=== PATIENT | female | born 1955 | race African-American/Black ===

== ENCOUNTER 2016-11-21 06:52 | Day surgery (SDC) | payer OTHER ==
[2016-11-20 10:00] VITALS: BMI 23.8
--- NOTE | 2016-11-20 16:25 | HP ---
- Patient Scheduled date of Surgery: 11/21/16 Scheduled Surgical Procedure: Phacoemulsification and cataract extraction with PCIOL Affected Eye: Left Chief Complaint (Indication for surgery): Decreased vision affecting ADLs - Ocular History Other Eye History: Other (none) Eye Medications: vigamox Previous Eye Surgery: none - Medical History Illnesses: COPD (PE), Hypertension Current Medications: Ambulatory Orders Albuterol Sulfate Inhaler - [Ventolin Hfa Inhaler -] 1 - 2 inh PO QID 04/15/16 Budesonide/Formeterol Fumarate [SYMBICORT 80/4.5mcg -] 1 inh PO BID 04/15/16 Cholecalciferol (Vitamin D3) [Vitamin D] 500 unit PO DAILY 04/15/16 Gabapentin 300 mg PO DAILY 04/15/16 Hydrochlorothiazide [Hctz -] 12.5 mg PO DAILY 04/15/16 Omeprazole [Prilosec] 40 mg PO DAILY 04/15/16 Ranitidine HCl [Zantac] 150 mg PO DAILY 04/15/16 Sennosides/Docusate Sodium [Dok Plus Tablet] 1 each PO DAILY 04/15/16 Warfarin Sodium [Coumadin] 5 mg PO HS 04/15/16 Albuterol Sulfate Inhaler - [Ventolin Hfa Inhaler -] 1 - 2 inh PO PRN PRN Naproxen [Naprosyn -] 500 mg PO DAILY 11/20/16 Allergies/Adverse Reactions: Allergies Allergy/AdvReac Type Severity Reaction Status Date / Time aspirin Allergy "HIVES" Verified 11/20/16 10:01 Penicillins Allergy "HIVES" Verified 11/20/16 10:01 sulfamethoxazole Allergy "HIVES" Verified 11/20/16 10:01 [From Bactrim] trimethoprim [From Bactrim] Allergy "HIVES" Verified 11/20/16 10:01 iv contrast Allergy "HIVES" Uncoded 11/20/16 10:01 Ocular Examination - Best Corrected Visual Acuity Distance: Right eye: 20/25 Distance: Left eye: 20/40 - External/Slit Lamp Examination Abnormalities: none - Intraocular Pressure Intraocular Pressure - Right eye: 14 Intraocular Pressure-Left eye: 14 - Lens Lens: 1+ NS 2+ anterior subcapsular cataract, posterior cortical change - Vitreous/Retina Vitreous/Retina: c:d 0.2 m pigmenary changes, v /p wnl - Special Examination M - Right eye: +1.25-0.50 x 105 M - Left eye: +1.00- 0.75 x 75 K - Right eye: 45/45.25 x 160 K - Left eye: 44.75/45 x 177 AL - Right eye: 23.48 AL - Left eye: 23.45 IOL bag: +19.0d hoya 251 IOL sulcus: +18.0 d hoya 231 IOL AC: +15.5 d mta 4uo - Impression Impression: Cataract Left Eye - Plan Plan: Phacoemulsification and cataract extraction - IOL Left eye Post-hospital care will be provided in office on: 11/22/16
[~2016-11-21 06:52] MED LIST: TOBRAMYCIN/DEXAMETHASONE OPHTH. OINTMENT 1 TUBE TP ONE
[2016-11-21] MEDS ORDERED: ACETAMINOPHEN 325 MG TABLET (FP) PO PRN (07:24)
[2016-11-21] MEDS ORDERED: TROPICAMIDE 1% OPHTH SOLN 15 ML BOTTLE OP SCH (07:30)
[2016-11-21] MEDS ORDERED: CIPROFLOXACIN HCL 0.3% OPHTH 2.5ML BOTTLE OP SCH (07:30)
[2016-11-21] MEDS ORDERED: PHENYLEPHRINE 2.5% OPHTH SOLN 15 ML BOTTLE OP SCH (07:30)
[2016-11-21 07:45] LABS: INR 1.99 (0.82-1.09); PROTHROMBIN TIME (PATIENT) 22.2 SEC (9.98-11.88)
[2016-11-21 07:48] LABS: ACTIVATED PTT 35.7 SECONDS (26.9-34.4)
[2016-11-21 07:58] VITALS: TEMP 97.9
[2016-11-21] MEDS: TROPICAMIDE 1% OPHTH SOLN 15 ML BOTTLE ONE ×2 (08:00→08:05)
[2016-11-21] MEDS: PHENYLEPHRINE 2.5% OPHTH SOLN 15 ML BOTTLE ONE ×2 (08:00→08:05)
[2016-11-21] MEDS: DICLOFENAC SODIUM 0.1% OPHTHALMIC 2.5ML BOTTLE ONE ×2 (08:00→08:05)
[2016-11-21] MEDS: CIPROFLOXACIN 0.3% EYE DROPS 5 ML BOTTLE ONE ×2 (08:00→08:05)
[2016-11-21] MEDS ORDERED: MIDAZOLAM HCL 2 MG/2 ML SINGLE DOSE VIAL ONE (08:52)
[2016-11-21] MEDS ORDERED: LIDOCAINE HCL 2% JELLY (5 ML/TUBE) TP ONE (08:53)
[2016-11-21] MEDS ORDERED: LIDOCAINE HCL 1% PRESERVATIVE FREE - 30ML VIAL IO ONE (09:10)
[2016-11-21] MEDS ORDERED: TRYPAN BLUE 0.5 ML DISP.SYRIN IO ONE (09:14)
[2016-11-21] MEDS ORDERED: CHONDROITIN SU A/HYALUR SOD 1 KIT IO ONE (09:14)
[2016-11-21] MEDS ORDERED: BSS (NA/CA/MG/K) BALANCED SALT SOLUTION OPHTH SOLN 15 ML BOTTLE ONE (09:24)
[2016-11-21] MEDS ORDERED: TOBRAMYCIN/DEXAMETHASONE OPHTH. OINTMENT 1 TUBE ONE (09:24)
[2016-11-21] MEDS ORDERED: LIDOCAINE 1% P/F 10 MG/ML VIAL ONE (09:24)
[2016-11-21] MEDS ORDERED: EPINEPHrine/PF 1 MG/1 ML (1:1,000) AMPULE ONE (09:24)
[2016-11-21] MEDS ORDERED: TRYPAN BLUE 0.5 ML DISP.SYRIN ONE (09:24)
[2016-11-21] MEDS ORDERED: TOBRAMYCIN/DEXAMETHASONE OPHTH. OINTMENT 1 TUBE TP ONE (09:41)
--- NOTE | 2016-11-21 09:48 | HP ---
History & Physical Update - History History: No Change - Physical Physical: No Change - Assessment Assessment: No Change - Plan Plan: No Change
--- NOTE | 2016-11-21 09:48 | OP ---
Ophthalmology Operative Note Pre-Operative Diagnosis: Cataract Affected Eye: Left Operation: Phacoemulsification and cataract extraction with PCIOL Findings: cataract left eye Post-Operative Diagnosis: Same as Pre-op Supervisor Grower: Jerome Anesthesiologist: Bennett Whalen Anesthesia: Topical Specimens Removed: none Estimated blood loss: none Operative Report Dictated: No
--- NOTE | 2016-11-21 10:38 | OP ---
DATE OF OPERATION: 11/21/2016 PREOPERATIVE DIAGNOSIS: Cataract, left eye. POSTOPERATIVE DIAGNOSIS: Cataract, left eye. PROCEDURE: Phacoemulsification and cataract extraction with insertion of posterior chamber intraocular lens, left eye. SURGEON: Martha Valladares MD RAIL SIGNAL WORKER: None. ANESTHESIA: Topical. ANESTHESIOLOGIST: Bennett Whalen MD OPERATIVE PROCEDURE: The patient received viscous lidocaine gel in the holding area and then was brought to the operating room and gently sedated. The patient was then prepped and draped in the usual sterile fashion, so as to expose only the left eye. Ophthalmic Betadine was instilled into the inferior fornix, and the lashes were taped out of the surgical field. An eyelid speculum was placed into the left eye. A paracentesis was made in inferior clear cornea at the limbus. Nonpreserved lidocaine, 0.5 mL, 1% was injected into the anterior chamber and an air bubble was injected into the anterior chamber. Trypan blue was dripped on the anterior capsule, and viscoelastic material was instilled into the anterior chamber via the paracentesis to remove the trypan blue. A 2.4-mm keratome was then used to create the main incision in temporal clear cornea at the limbus. A continuous curvilinear capsulorrhexis was performed using a cystotome and Utrata forceps. Hydrodissection of the lens cortex was performed using BSS on a cannula until the nucleus was noted to be freely rotating. The phacoemulsification tip was inserted via the main wound and used to sculpt 2 perpendicular grooves into the lens nucleus. Viscoelastic was injected into the grooves, and the nucleus cracker was used to crack the lens into 4 quadrants. Each quadrant was lifted out of the capsule into the iris plane and individually phacoemulcified. The remaining cortical material was then aspirated using the irrigation and aspiration port. The capsular bag was inflated using Provisc and a preloaded Hoya lens, model 251, power +19.0 diopter was injected into the capsular bag and centered using a Sinskey hook. The residual viscoelastic material was removed from the anterior chamber using irrigation and aspiration. The wound edges were hydrated using BSS. The wound was tested for leakage. It was found to be watertight. Therefore, TobraDex ointment was placed in the eye, the speculum was removed from the eye, and the eyelid was closed. A sterile dressing and shield were placed over the eye, and the patient was transferred to the recovery room in stable condition, told to follow up in 1 day. MARTHA VALLADARES M.D. [id number]
[2016-11-21 12:31] VITALS: BP 112/56; PULSE 62
== END 2016-11-21 11:40 | disposition home or self-care (01) ==
LOC: JASU-SURG 06:52
PROVIDERS: ATTEND Ophthalmology
PROC: 08RK3JZ Replacement of Left Lens with Synthetic Substitute, Percutaneous Approach (ICD-10-PCS; principal; 2016-11-21 08:30)
DX: H26.9 Unspecified cataract (principal)
CPT/HCPCS: 36415; 85610; 85730

== ENCOUNTER 2017-02-23 20:15 | Inpatient (IN) | payer OTHER ==
--- NOTE | 2017-02-23 20:59 | PDOC ---
History of Present Illness - History of Present Illness Initial Comments: 02/23/17 21:43 The patient is a 61 year old female, with a significant past medical history of hypertension, pulmonary embolism (on anticoagulants), who presents to the emergency department with fever, cough, headache and sore throat since yesterday. She states she had a scratchy throat yesterday, exacerbated by coughing. She reports her cough is productive of green sputum. The patient states that shehad one episode of red-tinged sputum yesterday. She states she woke up with a subjective fever today and diffuse intermittent headache this evening. She states she has had decreased appetite since the onset of symptoms. Secondarily, she reports some mild pain to her left lower extremity. He denies chest pain, shortness of breath, and dizziness. He denies chills, nausea, vomit, diarrhea and constipation. He denies dysuria, frequency, urgency and hematuria. Allergies: aspirin, penicillins, sulfa drugs, trimethoprim, IV contrast Social history: Pt is retired and lives home alone PCP - Dr. Beena Hurtado <Ashley Cameron - Last Filed: 02/23/17 21:52> <Mague De Anda - Last Filed: 02/24/17 00:57> - General Chief Complaint: Respiratory Stated Complaint: COUGH,PAIN TO CHEST Time Seen by Provider: 02/23/17 20:25 Past History <Ashley Cameron - Last Filed: 02/23/17 21:52> - Past Medical History Asthma: Yes HTN: Yes - Psycho/Social/Smoking Cessation Hx Anxiety: No Suicidal Ideation: No Smoking History: Never smoked Have you smoked in the past 12 months: No Hx Alcohol Use: No Drug/Substance Use Hx: No Substance Use Type: None Hx Substance Use Treatment: No <Mague De Anda - Last Filed: 02/24/17 00:57> - Past Medical History Allergies/Adverse Reactions: Allergies Allergy/AdvReac Type Severity Reaction Status Date / Time aspirin Allergy "HIVES" Verified 02/23/17 20:21 Penicillins Allergy "HIVES" Verified 02/23/17 20:21 sulfamethoxazole Allergy "HIVES" Verified 02/23/17 20:21 [From Bactrim] trimethoprim [From Bactrim] Allergy "HIVES" Verified 02/23/17 20:21 iv contrast Allergy "HIVES" Uncoded 02/23/17 20:21 Home Medications: Ambulatory Orders Budesonide/Formeterol Fumarate [SYMBICORT 80/4.5mcg -] 1 inh PO BID 04/15/16 Cholecalciferol (Vitamin D3) [Vitamin D] 500 unit PO DAILY 04/15/16 Gabapentin 300 mg PO DAILY 04/15/16 Hydrochlorothiazide [Hctz -] 12.5 mg PO DAILY 04/15/16 Omeprazole [Prilosec] 40 mg PO DAILY 04/15/16 Ranitidine HCl [Zantac] 150 mg PO DAILY 04/15/16 Sennosides/Docusate Sodium [Dok Plus Tablet] 1 each PO DAILY 04/15/16 Warfarin Sodium [Coumadin] 5 mg PO HS 04/15/16 Albuterol Sulfate Inhaler - [Ventolin Hfa Inhaler -] 1 - 2 inh PO PRN PRN Naproxen [Naprosyn -] 500 mg PO DAILY 11/20/16 Acetaminophen [Tylenol -] 500 mg PO Q4H 11/21/16 Review of Systems - Review of Systems Able to Perform ROS?: Yes Comments:: 02/23/17 21:47 GENERAL/CONSTITUTIONAL: (+) subjective fevers. No chills. No weakness. HEAD, EYES, EARS, NOSE AND THROAT: (+) sore throat. No change in vision. No ear pain or discharge. CARDIOVASCULAR: No chest pain or shortness of breath. RESPIRATORY: (+) productive cough, no wheezing GASTROINTESTINAL: No nausea, vomiting, diarrhea or constipation. GENITOURINARY: No dysuria, frequency, or change in urination. MUSCULOSKELETAL: (+) left lower extremity pain. No joint or muscle swelling. No neck or back pain. SKIN: No rash NEUROLOGIC:o(+) headache, No vertigo, loss of consciousness, or change in strength/sensation. ENDOCRINE:(+) decreased appetite. No increased thirst. No abnormal weight change. HEMATOLOGIC/LYMPHATIC: No anemia, easy bleeding, or history of blood clots. ALLERGIC/IMMUNOLOGIC: No hives or skin allergy. <Ashley Cameron - Last Filed: 02/23/17 21:52> *Physical Exam - Vital Signs Last Vital Signs Temp Pulse Resp BP Pulse Ox 100.5 F H 93 H 18 126/74 89 L 02/23/17 20:18 02/23/17 20:18 02/23/17 20:18 02/23/17 20:18 02/23/17 20:18 - Physical Exam Comments: 02/23/17 21:49 GENERAL: Awake, alert, and fully oriented, in no acute distress HEAD: No signs of trauma EYES: PERRLA, EOMI, sclera anicteric, conjunctiva clear ENT: Auricles normal inspection, hearing grossly normal, nares patent, oropharynx clear without exudates. Moist mucosa NECK: Normal ROM, supple, no lymphadenopathy, JVD, or masses LUNGS: Breath sounds equal, clear to auscultation bilaterally. No wheezes, and no crackles HEART: Regular rate and rhythm, normal S1 and S2, no murmurs, rubs or gallops ABDOMEN: Soft, nontender, normoactive bowel sounds. No guarding, no rebound. No masses EXTREMITIES: Normal range of motion, no edema. No clubbing or cyanosis. No cords, erythema, or tenderness NEUROLOGICAL: Cranial nerves II through XII grossly intact. Normal speech, normal gait SKIN: Warm, Dry, normal turgor, no rashes or lesions noted. <Ashley Cameron - Last Filed: 02/23/17 21:52> - Vital Signs Last Vital Signs Temp Pulse Resp BP Pulse Ox 100.5 F H 93 H 18 126/74 89 L 02/23/17 20:18 02/23/17 20:18 02/23/17 20:18 02/23/17 20:18 02/23/17 20:18 <Mague De Anda - Last Filed: 02/24/17 00:57> ED Treatment Course - LABORATORY CBC & Chemistry Diagram: 02/23/17 21:58 02/23/17 21:58 <Mague De Anda - Last Filed: 02/24/17 00:57> Medical Decision Making - Medical Decision Making 02/24/17 00:57 Patient Name: Terra Angeles THIS IS A PRELIMINARYREPORT FROM IMAGING C.O.D. CLERK EXAM: Chest x-ray PA and lateral IMAGES: 3 EXAM DATE AND TIME: 2017-02-23 23: 21:13.0 REASON FOR EXAM: Rule out pneumonia COMPARISON: None FINDINGS: Osseous structures heart lungs and mediastinum are normal. No infiltrates THIS DOCUMENT HAS BEEN ELECTRONICALLY SIGNED <Mague De Anda - Last Filed: 02/24/17 00:57> *DC/Admit/Observation/Transfer - Attestations Scribe Attestion: 02/23/17 21:51 Documentation prepared by Ashley Cameron, acting as medical physics researcher for Mague De Anda MD <Ashley Cameron - Last Filed: 02/23/17 21:52> - Discharge Dispostion Admit: Yes <Mague De Anda - Last Filed: 02/24/17 00:57> Diagnosis at time of Disposition: Bilateral pneumonia, Hypoxia - Discharge Dispostion Condition at time of disposition: Guarded - Referrals
[2017-02-23] MEDS ORDERED: LEVOFLOXACIN 500 MG IVPB 100 ML IVPB ONE ×2 (21:00→21:36)
[2017-02-23 22:14] LABS: BASOPHIL 0.4 % (0-2.0); EOSINOPHIL 0.4 % (0-4.5); MCHC 32.5 g/dl (32.0-36.0); NEUTROPHILS 80.4 % (42.8-82.8); PLATELET COUNT 165 K/MM3 (134-434); RDW 15.1 % (11.6-15.6); WHITE BLOOD COUNT 6.6 K/mm3 (4.0-10.0)
[2017-02-23 22:22] LABS: INR 2.21 (0.82-1.09); PROTHROMBIN TIME (PATIENT) 24.7 SEC (9.98-11.88)
[2017-02-23 22:42] LABS: ALBUMIN 3.5 g/dl (3.4-5.0); ANION GAP 9 (8-16); BILIRUBIN,TOTAL 0.5 mg/dL (0.2-1.0); CALCIUM 8.8 mg/dL (8.5-10.1); CO2 24 mmol/L (21-32); CREATININE 0.8 mg/dL (0.55-1.02); GLUCOSE,RANDOM 85 mg/dL (74-106); SGOT/AST 16 U/L (15-37); SGPT/ALT 17 U/L (12-78); TOT PROT 7.4 g/dl (6.4-8.2)
[2017-02-23 22:44] LABS: ALK PHOS 110 U/L (45-117); TROPONIN I < 0.02 ng/ml (0.00-0.05)
--- NOTE | 2017-02-23 23:49 | PN ---
<Robert Iraheta - Last Filed: 02/24/17 00:48> Teaching Attending Note ATTENDING PHYSICIAN STATEMENT I saw and evaluated the patient. I reviewed the resident's note and discussed the case with the resident. I agree with the resident's findings and plan as documented. SUBJECTIVE: The patient is a 61 year old female, with a significant past medical history of hypertension and PE (on AC), who presents to the emergency department with SOB, productive cough with green sputum, and sore throat since yesterday. PCP - Dr. Beena Hurtado PAST MEDICAL HISTORY: hypertension, pulmonary embolism, asthma, HTN PAST SURGICAL HISTORY: No significant history reported FAMILY HISTORY: No pertinent history reported SOCIAL HISTORY: Denied history of smoking, EtOH use, and/or recreational drug use. ALLERGIES: aspirin, penicillins, sulfa drugs, trimethoprim, IV contrast MEDICATIONS: Reviewed OBJECTIVE: Last Vital Signs 3 Temp Pulse Resp BP Pulse Ox 100.5 F H 93 H 18 126/74 89 L 02/23/17 20:18 02/23/17 20:18 02/23/17 20:18 02/23/17 20:18 02/23/17 20:18 Physical Exam: GEN: NAD HEENT: NCAT, PERRL CARD: RRR, S1 S2 RESP: CTAB ABD: NT, BWS x4 EXT: - CCE Labs: CBCD 3 WBC 6.6 K/mm3 (4.0-10.0) 02/23/17 21:58 RBC 5.43 M/mm3 (3.60-5.2) H 02/23/17 21:58 Hgb 14.6 GM/dL (10.7-15.3) 02/23/17 21:58 Hct 45.0 % (32.4-45.2) 02/23/17 21:58 MCV 83.0 fl (80-96) 02/23/17 21:58 MCHC 32.5 g/dl (32.0-36.0) 02/23/17 21:58 RDW 15.1 % (11.6-15.6) 02/23/17 21:58 Plt Count 165 K/MM3 (134-434) 02/23/17 21:58 MPV 10.0 fl (7.5-11.1) 02/23/17 21:58 CMP 3 Sodium 139 mmol/L (136-145) 02/23/17 21:58 Potassium 4.4 mmol/L (3.5-5.1) 02/23/17 21:58 Chloride 106 mmol/L (98-107) 02/23/17 21:58 Carbon Dioxide 24 mmol/L (21-32) 02/23/17 21:58 Anion Gap 9 (8-16) 02/23/17 21:58 BUN 8 mg/dL (7-18) D 02/23/17 21:58 Creatinine 0.8 mg/dL (0.55-1.02) 02/23/17 21:58 Creat Clearance w eGFR > 60 (>60) 02/23/17 21:58 Calcium 8.8 mg/dL (8.5-10.1) 02/23/17 21:58 Total Bilirubin 0.5 mg/dL (0.2-1.0) D 02/23/17 21:58 AST 16 U/L (15-37) D 02/23/17 21:58 ALT 17 U/L (12-78) 02/23/17 21:58 Alkaline Phosphatase 110 U/L (45-117) 02/23/17 21:58 Total Protein 7.4 g/dl (6.4-8.2) 02/23/17 21:58 Albumin 3.5 g/dl (3.4-5.0) 02/23/17 21:58 Imaging: EXAM: Chest x-ray PA and lateral IMAGES: 3 EXAM DATE AND TIME: 2017-02-23 23: 21:13.0 REASON FOR EXAM: Rule out pneumonia COMPARISON: None FINDINGS: Osseous structures heart lungs and mediastinum are normal. No infiltrates THIS DOCUMENT HAS BEEN ELECTRONICALLY SIGNED Jimenez Monreal MD 02/24/2017 00:21 EST ASSESSMENT AND PLAN: 61 year old female with past medical history of PE (on AC) and HTN who presented with sore throat and fever, found to be septic. 1. Hypoxia - sepsis/vasculitis/asthma/COPD exacerbation - DDX - [facility] culture - Lactic Acid - IVF - s/p levaquin in ED - CT chest wo contrast due to allergy 2. PE - theraputic on Coumadin - Continue Coumadin 3. HTN - Continue home medications Place in med surg. Documentation prepared by Robert Iraheta, acting as medical radiation dosimetrist for Dr. Mark Pham MD. <Mark Pham - Last Filed: 02/24/17 07:01> Teaching Attending Note Name of Resident: John Koehler EDIT: Acute Exacerbation of COPD - Continue Solu-Medrol - Abx - Duonebs ATC/PRN - Symbicort - Keep 02 between 88-92%
[2017-02-24] MEDS ORDERED: methylPREDNISolone NA SUCC 125 MG/2 ML VIAL IVPB ONE (01:28)
[2017-02-24] MEDS ORDERED: methylPREDNISolone NA SUCC 125 MG/2 ML VIAL ONE (01:35)
[2017-02-24] MEDS ORDERED: SODIUM CHLORIDE 1,000 ML IV SCH (02:00)
[2017-02-24] MEDS ORDERED: ACETAMINOPHEN 325 MG TABLET (FP) PO PRN (02:00)
--- NOTE | 2017-02-24 02:05 | HP ---
CHIEF COMPLAINT: cough, sob, fevers PCP: Dr. Beena Hurtado HISTORY OF PRESENT ILLNESS: 61 y/o F w/PMH of HTN, PE (on warfarin), COPD, GERD presents to the ER with c/o cough with green sputum production and SOB since yesterday morning. Pt also reports she has had subjective fevers, chills, headache, sore throat, runny nose , generalized weakness and decreased appetite since yesterday morning. Symptoms started after waking up. [place] and the person next to her was coughing on her continuously. She has some chest pain upon coughing, baseline leg pain (for which she takes gabapentin). She denies recent travel, visual changes, hearing changes, diarrhea, blood in stool, dysuria, frequency, blood in urine. ER course was notable for: (1) Levaquin, CXR, BCX, UCX (2) (3) Recent Travel: denies PAST MEDICAL HISTORY:HTN, PE (on warfarin), COPD, GERD PAST SURGICAL HISTORY: 3 C-sections, Cataract surgery Social History: Smoking: denies Alcohol: denies Drugs: denies Family History: Mother: DM; Father: HTN Allergies aspirin Allergy (Verified 02/23/17 20:21) "HIVES" Penicillins Allergy (Verified 02/23/17 20:21) "HIVES" sulfamethoxazole [From Bactrim] Allergy (Verified 02/23/17 20:21) "HIVES" trimethoprim [From Bactrim] Allergy (Verified 02/23/17 20:21) "HIVES" iv contrast Allergy (Uncoded 02/23/17 20:21) "HIVES" HOME MEDICATIONS: Home Medications Medication Instructions Recorded Budesonide/Formeterol Fumarate 1 inh PO BID 04/15/16 [SYMBICORT 80/4.5mcg -] Cholecalciferol (Vitamin D3) 500 unit PO DAILY 04/15/16 [Vitamin D] Gabapentin 300 mg PO DAILY 04/15/16 Hydrochlorothiazide [Hctz -] 12.5 mg PO DAILY 04/15/16 Omeprazole [Prilosec] 40 mg PO DAILY 04/15/16 Ranitidine HCl [Zantac] 150 mg PO DAILY 04/15/16 Sennosides/Docusate Sodium [Dok 1 each PO DAILY 04/15/16 Plus Tablet] Warfarin Sodium [Coumadin] 5 mg PO HS 04/15/16 Albuterol Sulfate Inhaler - 1 - 2 inh PO PRN PRN 11/20/16 [Ventolin Hfa Inhaler -] Naproxen [Naprosyn -] 500 mg PO DAILY 11/20/16 Acetaminophen [Tylenol -] 500 mg PO Q4H 11/21/16 REVIEW OF SYSTEMS CONSTITUTIONAL: +fever, chills, generalized weakness, loss of appetite HEENT: +rhinorrhea, throat pain Absent: difficulty swallowing, mouth swelling, ear pain, eye pain, visual changes CARDIOVASCULAR: Absent: chest pain, syncope, palpitations, irregular heart rate RESPIRATORY: +cough, sob GASTROINTESTINAL: Absent: vomiting, diarrhea, constipation, melena, hematochezia GENITOURINARY: Absent: dysuria, frequency, hematuria MUSCULOSKELETAL: Absent: myalgia, arthralgia, joint swelling, back pain, neck pain NEUROLOGIC: +headache Absent: focal weakness or paresthesias, unsteady gait PSYCHIATRIC: Absent: anxiety, depression PHYSICAL EXAMINATION Vital Signs - 24 hr 02/24/17 01:30 Temperature 99.1 F Pulse Rate [ 70 Apical] Respiratory 20 Rate Blood Pressure 134/85 [Right Arm] O2 Sat by Pulse 91 L Oximetry (%) GENERAL: Awake, alert, and fully oriented, in no acute distress. HEAD: Normal with no signs of trauma. EYES: extraocular movements intact, sclera anicteric, conjunctiva clear EARS, NOSE, THROAT: Ears normal, nares patent, oropharynx clear without exudates. Dry mucous membranes. NECK: Normal range of motion, supple LUNGS: +B/L wheezing, no crackles HEART: Regular rate and rhythm, normal S1 and S2 without murmur, rub or gallop. ABDOMEN: +diffuse mild tenderness to palpation. Soft, not distended, normoactive bowel sounds, no guarding, no rebound, no masses. No hepatomegaly or splenomegaly. MUSCULOSKELETAL: No CVA tenderness. LOWER EXTREMITIES: 2+ pulses, warm, well-perfused. No calf tenderness. NEUROLOGICAL: Normal speech. Gait not observed. PSYCHIATRIC: Cooperative. Good eye contact. Appropriate mood and affect. SKIN: Warm, dry, normal turgor, no rashes or lesions noted, normal capillary refill. CBCD WBC 6.6 K/mm3 (4.0-10.0) 02/23/17 21:58 RBC 5.43 M/mm3 (3.60-5.2) H 02/23/17 21:58 Hgb 14.6 GM/dL (10.7-15.3) 02/23/17 21:58 Hct 45.0 % (32.4-45.2) 02/23/17 21:58 MCV 83.0 fl (80-96) 02/23/17 21:58 MCHC 32.5 g/dl (32.0-36.0) 02/23/17 21:58 RDW 15.1 % (11.6-15.6) 02/23/17 21:58 Plt Count 165 K/MM3 (134-434) 02/23/17 21:58 MPV 10.0 fl (7.5-11.1) 02/23/17 21:58 CMP Sodium 139 mmol/L (136-145) 02/23/17 21:58 Potassium 4.4 mmol/L (3.5-5.1) 02/23/17 21:58 Chloride 106 mmol/L (98-107) 02/23/17 21:58 Carbon Dioxide 24 mmol/L (21-32) 02/23/17 21:58 Anion Gap 9 (8-16) 02/23/17 21:58 BUN 8 mg/dL (7-18) D 02/23/17 21:58 Creatinine 0.8 mg/dL (0.55-1.02) 02/23/17 21:58 Creat Clearance w eGFR > 60 (>60) 02/23/17 21:58 Random Glucose 85 mg/dL (74-106) 02/23/17 21:58 Calcium 8.8 mg/dL (8.5-10.1) 02/23/17 21:58 Total Bilirubin 0.5 mg/dL (0.2-1.0) D 02/23/17 21:58 AST 16 U/L (15-37) D 02/23/17 21:58 ALT 17 U/L (12-78) 02/23/17 21:58 Alkaline Phosphatase 110 U/L (45-117) 02/23/17 21:58 Total Protein 7.4 g/dl (6.4-8.2) 02/23/17 21:58 Albumin 3.5 g/dl (3.4-5.0) 02/23/17 21:58 CARDIAC ENZYMES Creatine Kinase 77 IU/L (26-192) 02/23/17 21:58 Troponin I < 0.02 ng/ml (0.00-0.05) 02/23/17 21:58 Imaging: CXR: as per my read: no acute pathology; pending official read Active Medications Albuterol/Ipratropium (Duoneb -) 1 amp NEB QIDR [facility] Budesonide/Formoterol Fumarate (Symbicort 80/4.5mcg -) 1 puff IH BID [facility] Gabapentin (Neurontin -) 300 mg PO DAILY [facility] Hydrochlorothiazide (Hctz -) 12.5 mg PO DAILY [facility] Azithromycin 500 mg/ Dextrose 250 mls @ 250 mls/hr IVPB DAILY [facility] Sodium Chloride (Normal Saline -) 1,000 mls @ 83 mls/hr IV ASDIR [facility] Methylprednisolone Sodium Succinate (Solu-Medrol -) 60 mg IVPB BID [facility] Ranitidine HCl (Zantac -) 150 mg PO DAILY [facility] Senna/Docusate Sodium (Pericolace -) 1 tablet PO DAILY [facility] Warfarin Sodium (Coumadin -) 5 mg PO HS [facility] ASSESSMENT/PLAN: 61 y/o F w/PMH of HTN, PE (on warfarin), COPD, GERD presents to the ER with c/o cough with green sputum production and SOB since yesterday morning. Admitted for COPD exacerbation -Hypoxia secondary to acute on chronic COPD exacerbation w/superimposed URI -Solu-medrol 125 mg once, followed by 60 mg bid, to taper -Azithromycin 500 mg iv qd -Duonebs QIDR -c/w symbicort -tylenol for fevers -f/u BCx. UCx, SpCx, Lactic Acid -Hx of PE -c/w warfarin 5 mg po qd -f/u INR, to keep INR 2-3 -HTN -HCTZ 12.5 mg po qd -GERD -Ranitidine 150 mg po qd -Neuropathic Leg pain -Gabapentin 300 mg po qd -DVT ppx -on warfarin -FEN -NS @ 83 ml/hr -Monitor lytes -Regular diet -Dispo: -Admit to M/S Visit type - Emergency Visit Emergency Visit: Yes ED Registration Date: 02/23/17 Care time: The patient presented to the Emergency Department on the above date and was hospitalized for further evaluation of their emergent condition. - New Patient This patient is new to me today: Yes Date on this admission: 02/24/17 - Critical Care Critical Care patient: No
[2017-02-24 02:35] VITALS: BMI 38.9
[2017-02-24] MEDS ORDERED: ALBUTEROL SO4 2.5/IPRATROPIUM 0.5 INH SOL 3 ML VIAL.NEB. NEB SCH (06:00)
[2017-02-24 08:09] LABS: BASOPHIL 0.4 % (0-2.0); MCH 27.7 pg (25.7-33.7); MCHC 33.3 g/dl (32.0-36.0); MEAN CELL VOLUME 83.2 fl (80-96); MEAN PLT VOLUME 9.9 fl (7.5-11.1); NEUTROPHILS 84.1 % (42.8-82.8); PLATELET COUNT 172 K/MM3 (134-434); RDW 15.1 % (11.6-15.6)
[2017-02-24 08:15] VITALS: BP 107/65; PULSE 62; TEMP 98
[2017-02-24 08:23] LABS: INR 2.15 (0.82-1.09)
[2017-02-24 08:32] LABS: ALBUMIN 3.5 g/dl (3.4-5.0); ANION GAP 11 (8-16); CO2 22 mmol/L (21-32); GLUCOSE,RANDOM 123 mg/dL (74-106)
[2017-02-24 08:35] LABS: ALK PHOS 109 U/L (45-117); BILIRUBIN,TOTAL 0.6 mg/dL (0.2-1.0); CREATININE 0.9 mg/dL (0.55-1.02); SGOT/AST 16 U/L (15-37); SGPT/ALT 18 U/L (12-78); TOT PROT 7.7 g/dl (6.4-8.2)
[2017-02-24] MEDS ORDERED: BUDESONIDE/FORMETEROL FUMARATE 80/4.5 mcg INHALER IH SCH (10:00)
[2017-02-24] MEDS ORDERED: SENNOSIDES/DOCUSATE COMBO (SENNA PLUS) TABLET (UD) PO SCH (10:00)
[2017-02-24] MEDS ORDERED: AZITHROMYCIN IVPB 500 MG/250 ML D5W PRE-DOCKED IVPB SCH (10:00)
[2017-02-24] MEDS ORDERED: HYDROCHLOROTHIAZIDE 12.5 MG CAPSULE (FP) PO SCH (10:00)
[2017-02-24] MEDS ORDERED: GABAPENTIN 300 MG CAPSULE (FP) PO SCH (10:00)
[2017-02-24] MEDS ORDERED: AZITHROMYCIN IVPB 500 MG in DEXTROSE 5%-WATER - 250 ML IVPB SCH (10:00)
[2017-02-24] MEDS ORDERED: methylPREDNISolone NA SUCC 125 MG/2 ML VIAL IVPB SCH (10:00)
[2017-02-24] MEDS ORDERED: RANITIDINE HCL 150 MG TABLET (FP) PO SCH (10:00)
[2017-02-24 10:17] LABS: URINE APPEARANCE CLEAR; URINE BILIRUBIN NEGATIVE (NEGATIVE); URINE COLOR LTYELLOW; URINE GLUCOSE (UA) NEGATIVE (NEGATIVE); URINE KETONE NEGATIVE (NEGATIVE); URINE LEUK ESTERASE NEGATIVE (NEGATIVE); URINE NITRITE NEGATIVE (NEGATIVE); URINE PROTEIN NEGATIVE (NEGATIVE); URINE UROBILINOGEN NEGATIVE E.U./dl (0.2-1.0)
[2017-02-24 10:52] LABS: URINE BLOOD 1+ (NEGATIVE)
[2017-02-24 10:58] LABS: URINE BACTERIA RARE /hpf (NONE SEEN); URINE MUCUS RARE; URINE RBC <1 /hpf (0-3); URINE WBC 6 /hpf (3-5)
--- NOTE | 2017-02-24 13:55 | PN ---
Teaching Attending Note Name of Resident: Tina Loaiza ATTENDING PHYSICIAN STATEMENT I saw and evaluated the patient. I reviewed the resident's note and discussed the case with the resident. I agree with the resident's findings and plan as documented. SUBJECTIVE: reports improvement of SOB , sinus congestion and dry cough Vital Signs Temperature 98.0 F 02/24/17 08:14 Pulse Rate 62 02/24/17 08:14 Respiratory Rate 20 02/24/17 08:14 Blood Pressure 107/65 02/24/17 08:14 O2 Sat by Pulse Oximetry (%) 92 L 02/24/17 09:00 Lungs are CTA b/l , no wheezing HEART S1 S2 heard, no MRG , no pedal edema or jvd Abnormal Lab Results 02/23/17 02/23/17 02/24/17 21:58 21:58 05:30 RBC 5.43 H Neutrophils % Lymphocytes % 6.7 L Monocytes % 12.1 H INR 2.21 H Random Glucose Urine Blood 1+ H 02/24/17 02/24/17 02/24/17 07:20 07:20 07:20 RBC 5.39 H Neutrophils % 84.1 H Lymphocytes % Monocytes % 2.0 L D INR 2.15 H Random Glucose 123 H D Urine Blood ASSESSMENT AND PLAN: 61 year old female with history of COPD hospitalized for acute COPD exacerbation 2/2 viral bronchitis improved january d/c home on oral steroids and follow up with PCP within one week continue taking rest of the home meds
--- NOTE | 2017-02-24 13:59 | DS ---
Physical Exam: SUBJECTIVE: Patient seen and examined by me at bedside. Patient offers no complaints. She reports feeling much better than initial presentation and is able to breathe normally without oxygen and ambulate without difficulty. Patient still has a cough with clear sputum and mild congestion. Otherwise, denies fever, chills, nausea, vomiting, abdominal pain, chest pain, palpitations , shortness of breath, headaches, dizziness. OBJECTIVE: Vital Signs Period Temp Pulse Resp BP Sys/Hill Pulse Ox Last 24 Hr 98.0 F-99.9 F 62-75 20-20 107-134/65-85 91-92 PHYSICAL EXAM GENERAL: Awake, alert, and fully oriented, in no acute distress. EARS, NOSE, THROAT: Moist mucous membranes. LUNGS: Clear to auscultate bilaterally with no crackles or wheezing. HEART: Regular rate and rhythm, normal S1 and S2 without murmur, rub or gallop. ABDOMEN: Soft, nontender, non-distended, normoactive bowel sounds, no guarding, no rebound. LOWER EXTREMITIES: No calf tenderness or peripheral edema. NEUROLOGICAL: Normal speech. No facial droop LABS Laboratory Results - last 24 hr 02/24/17 02/24/17 02/24/17 05:30 07:20 07:20 WBC 5.0 RBC 5.39 H Hgb 14.9 Hct 44.9 MCV 83.2 MCHC 33.3 RDW 15.1 Plt Count 172 MPV 9.9 Neutrophils % 84.1 H Lymphocytes % 13.5 D Monocytes % 2.0 L D Eosinophils % 0.0 D Basophils % 0.4 INR Sodium 138 Potassium 4.4 Chloride 105 Carbon Dioxide 22 Anion Gap 11 BUN 15 D Creatinine 0.9 Creat Clearance w eGFR > 60 Random Glucose 123 H D Lactic Acid Calcium 9.0 Total Bilirubin 0.6 AST 16 ALT 18 Alkaline Phosphatase 109 Total Protein 7.7 Albumin 3.5 Urine Color Ltyellow Urine Appearance Clear Urine pH 5.0 Urine Protein Negative Urine Glucose (UA) Negative Urine Ketones Negative Urine Blood 1+ H Urine Nitrite Negative Urine Bilirubin Negative Urine Urobilinogen Negative Ur Leukocyte Esterase Negative Urine RBC <1 Urine WBC 6 Ur Epithelial Cells Rare Urine Bacteria Rare Urine Mucus Rare 02/24/17 02/24/17 07:20 07:20 WBC RBC Hgb Hct MCV MCHC RDW Plt Count MPV Neutrophils % Lymphocytes % Monocytes % Eosinophils % Basophils % INR 2.15 H Sodium Potassium Chloride Carbon Dioxide Anion Gap BUN Creatinine Creat Clearance w eGFR Random Glucose Lactic Acid 1.0 Calcium Total Bilirubin AST ALT Alkaline Phosphatase Total Protein Albumin Urine Color Urine Appearance Urine pH Urine Protein Urine Glucose (UA) Urine Ketones Urine Blood Urine Nitrite Urine Bilirubin Urine Urobilinogen Ur Leukocyte Esterase Urine RBC Urine WBC Ur Epithelial Cells Urine Bacteria Urine Mucus Imaging: Chest X-Ray(02/23/17): No acute pathology HOSPITAL COURSE: 61 year old female with a PMHx of HTN, PE (on warfarin), COPD, GERD who presented for URI symptoms of cough with green sputum, congestion, and shortness of breath, hypoxia with 02 sat of 89%. Patient was found to have bilateral wheezing and admitted for COPD exacerbation. Patient was given Steroids, IV antibiotics, DuoNeb, and symbicort. Patient had a quick and appropriate response to the medical management. This morning was feeling much better with resolution of hypoxia. Chest X-ray was negative for acute pathology and remained afebrile. Patient was stable for discharge. Patient advised to follow up with primary school teacher and was given a prescription for a Z- pack and steroids. Patient was also told to buy over the counter cough syrup and mucinex. Patient was then advised to follow up with PMD this week. Patient verbalized understanding and family was to pick her up to take her home. Date of Admission:02/23/17 Date of Discharge: 02/24/17 Minutes to complete discharge: 35 Discharge Summary Reason For Visit: COUGH,PAIN TO CHEST Current Active Problems Bilateral pneumonia (Acute) COPD exacerbation (Acute) Hypoxia (Acute) URI (upper respiratory infection) (Acute) Condition: Stable - Instructions Diet, Activity, Other Instructions: -You were admitted for COPD exacerbation likely from a viral respiratory infection -You will be placed on antibiotics and Prednisone. Please pick them up from the pharmacy -You will need to picker tender cough syrup and Mucinex over the counter at the pharmacy to help your cough and congestion -You will need to follow up with your Primary care doctor within 2-3 days. Please call the office and make an appointment -I will be giving you a referral for a primary school teacher to follow up with. Please call the office within a week -Continue taking your home medications -You may resume your regular diet and daily activities -If symptoms worsen, please return to the emergency department Referrals: Beena Hurtado MD [Primary Care Provider] - Disposition: HOME - Home Medications Comprehensive Discharge Medication List: Ambulatory Orders Budesonide/Formeterol Fumarate [SYMBICORT 80/4.5mcg -] 1 inh PO BID 04/15/16 Gabapentin 300 mg PO DAILY 04/15/16 Hydrochlorothiazide [Hctz -] 12.5 mg PO DAILY 04/15/16 Omeprazole [Prilosec] 40 mg PO DAILY 04/15/16 Warfarin Sodium [Coumadin] 5 mg PO HS 04/15/16 Albuterol Sulfate Inhaler - [Ventolin HFA Inhaler -] 1 - 2 inh PO PRN PRN Acetaminophen [Tylenol .Extra-Strength -] 500 mg PO Q4H PRN 11/21/16 Azithromycin 250 mg PO DAILY #3 tablet 02/24/17 Prednisone [Deltasone -] 40 mg PO DAILY #5 tablet 02/24/17 Ranitidine [Zantac -] 150 mg PO DAILY tablet 02/24/17 Sennosides/Docusate Sodium [Pericolace -] 1 tablet PO DAILY tablet 02/24/17 This patient is new to me today: Yes Date on this admission: 02/25/17 Emergency Visit: Yes ED Registration Date: 02/23/17 Care time: The patient presented to the Emergency Department on the above date and was hospitalized for further evaluation of their emergent condition. Critical Care patient: No - Discharge Referral Referred to [facility] No
--- NOTE | 2017-02-24 14:18 | EKG ---
Test Reason : Blood Pressure : / mmHG Vent. Rate : 080 BPM Atrial Rate : 080 BPM P-R Int : 178 ms QRS Dur : 068 ms QT Int : 386 ms P-R-T Axes : 058 074 061 degrees QTc Int : 445 ms NORMAL SINUS RHYTHM ABNORMAL ECG WHEN COMPARED WITH ECG OF 15-APR-2016 18:57, VENT. RATE HAS INCREASED BY 29 BPM QT HAS LENGTHENED Confirmed by TAD YEPEZ, BEAR ([id number]) on 02/24/2017 2:18:20 PM Referred By: Confirmed By:BEAR MISHRA MD
[2017-02-24] MEDS ORDERED: WARFARIN NA 5 MG TABLET (UD) PO SCH (18:00)
== END 2017-02-24 14:39 | disposition home or self-care (01) | DRG 140 ==
LOC: JER 20:15 → JERBED 23:48 → J6S 02-24 02:08
PROVIDERS: ADMIT Internal Medicine; ATTEND Internal Medicine
DX: J44.0 Chronic obstructive pulmonary disease with (acute) lower respiratory infection (principal); J44.1 Chronic obstructive pulmonary disease with (acute) exacerbation; I10 Essential (primary) hypertension; J20.8 Acute bronchitis due to other specified organisms; Z86.711 Personal history of pulmonary embolism; Z88.0 Allergy status to penicillin; J45.909 Unspecified asthma, uncomplicated; K21.9 Gastro-esophageal reflux disease without esophagitis; Z79.01 Long term (current) use of anticoagulants; J18.9 Pneumonia, unspecified organism; R09.02 Hypoxemia
CPT/HCPCS: 36415; 71020-TC; 80053; 81003; 81015; 82550; 83605; 84484; 85025; 85610; 87040; 87086; 87186; 93005; 93010; 99285-25

== ENCOUNTER 2017-08-15 20:07 | Emergency (ER) | payer OTHER ==
[2017-08-15 20:12] VITALS: BP 114/57; PULSE 70; BMI 40.2
--- NOTE | 2017-08-15 21:16 | PDOC ---
History of Present Illness - General Chief Complaint: Syncope/Near Syncope Stated Complaint: INJURY Time Seen by Provider: 08/15/17 20:16 - History of Present Illness Initial Comments: 08/15/17 21:13 The patient is a 61 year old female, with a significant past medical history of hypertension, pulmonary embolism (on coumadin), who presents to the emergency department with syncopal episode. The patient states that she was walking outside when she began to feel queasy and lightheaded. She attempted to walk towards a step to sit down but lost consciousness before she made it there. Pt awoke shortly after and was helped up by some people who witnessed her fall. She denies hitting her head during her fall. Pt denies ever having CP/SOB/ palpitations. Now feels back to normal without any complaints. She denies headache, vomiting. Denies abdominal pain or diarrhea. No history of seizure. No leg swelling. Past History - Past Medical History Allergies/Adverse Reactions: Allergies Allergy/AdvReac Type Severity Reaction Status Date / Time aspirin Allergy "HIVES" Verified 08/15/17 20:09 Penicillins Allergy "HIVES" Verified 08/15/17 20:09 sulfamethoxazole Allergy "HIVES" Verified 08/15/17 20:09 [From Bactrim] trimethoprim [From Bactrim] Allergy "HIVES" Verified 08/15/17 20:09 iv contrast Allergy "HIVES" Uncoded 08/15/17 20:09 Home Medications: Ambulatory Orders Budesonide/Formeterol Fumarate [SYMBICORT 80/4.5mcg -] 1 inh PO BID 04/15/16 Gabapentin 300 mg PO DAILY 04/15/16 Hydrochlorothiazide [Hctz -] 12.5 mg PO DAILY 04/15/16 Omeprazole [Prilosec] 40 mg PO DAILY 04/15/16 Warfarin Sodium [Coumadin] 5 mg PO HS 04/15/16 Albuterol Sulfate Inhaler - [Ventolin HFA Inhaler -] 1 - 2 inh PO PRN PRN Acetaminophen [Tylenol .Extra-Strength -] 500 mg PO Q4H PRN 11/21/16 Azithromycin 250 mg PO DAILY #3 tablet 02/24/17 Prednisone [Deltasone -] 40 mg PO DAILY #5 tablet 02/24/17 Ranitidine [Zantac -] 150 mg PO DAILY tablet 02/24/17 Sennosides/Docusate Sodium [Pericolace -] 1 tablet PO DAILY tablet 02/24/17 Asthma: Yes HTN: Yes - Suicide/Smoking/Psychosocial Hx Smoking History: Never smoked Have you smoked in the past 12 months: No Information on smoking cessation initiated: No Hx Alcohol Use: No Drug/Substance Use Hx: No Substance Use Type: None Hx Substance Use Treatment: No Review of Systems - Review of Systems Comments:: 08/15/17 21:26 "GENERAL/CONSTITUTIONAL: No fever or chills. No weakness. HEAD, EYES, EARS, NOSE AND THROAT: No change in vision. No ear pain or discharge. No sore throat. CARDIOVASCULAR: No chest pain or shortness of breath. RESPIRATORY: No cough, wheezing, or hemoptysis. GASTROINTESTINAL: No nausea, vomiting, diarrhea or constipation. GENITOURINARY: No dysuria, frequency, or change in urination. MUSCULOSKELETAL: No joint or muscle swelling or pain. SKIN: No rash NEUROLOGIC: (+) Loss of consciousness. No headache, vertigo, change in strength/ sensation. ENDOCRINE: No increased thirst. No abnormal weight change. HEMATOLOGIC/LYMPHATIC: No anemia, easy bleeding, or history of blood clots. ALLERGIC/IMMUNOLOGIC: No hives or skin allergy. " *Physical Exam - Vital Signs Last Vital Signs Temp Pulse Resp BP Pulse Ox 70 14 114/57 95 08/15/17 20:09 08/15/17 20:09 08/15/17 20:09 08/15/17 20:09 - Physical Exam Comments: 08/15/17 21:26 "GENERAL: Awake, alert, and fully oriented, in no acute distress HEAD: No signs of trauma EYES: PERRLA, EOMI, sclera anicteric, conjunctiva clear ENT: Auricles normal inspection, hearing grossly normal, nares patent, oropharynx clear without exudates. Moist mucosa NECK: Nontender, no stepoffs, Normal ROM, supple, no lymphadenopathy, JVD, or masses LUNGS: Breath sounds equal, clear to auscultation bilaterally. No wheezes, and no crackles HEART: Regular rate and rhythm, normal S1 and S2, no murmurs, rubs or gallops ABDOMEN: Soft, nontender, normoactive bowel sounds. No guarding, no rebound. No masses EXTREMITIES: Normal range of motion, no edema. No clubbing or cyanosis. No cords, erythema, or tenderness NEUROLOGICAL: Cranial nerves II through XII intact. 5/5 strength and sensation in all extremities, Normal speech, normal gait SKIN: Warm, Dry, normal turgor, no rashes or lesions noted. " Heart Score/ECG Review - ECG Impressions Comment:: 08/15/17 23:01 NSR, no JENNY/STDs, no TWIs, axis wnl, intervals wnl ED Treatment Course - LABORATORY CBC & Chemistry Diagram: 08/15/17 21:20 08/15/17 21:20 - ADDITIONAL ORDERS Additional order review: Laboratory Results 08/15/17 08/15/17 08/15/17 21:20 21:20 21:20 PT with INR 26.20 H INR 2.32 H PTT (Actin FS) D-Dimer < 200 Sodium Potassium Chloride Carbon Dioxide Anion Gap BUN Creatinine Creat Clearance w eGFR Random Glucose Calcium Total Bilirubin AST ALT Alkaline Phosphatase Creatine Kinase Troponin I B-Natriuretic Peptide 39.23 Total Protein Albumin 08/15/17 08/15/17 08/15/17 21:20 21:20 21:20 PT with INR INR PTT (Actin FS) 33.1 D-Dimer Sodium 140 Potassium 4.2 Chloride 108 H Carbon Dioxide 25 Anion Gap 7 L BUN 14 Creatinine 0.8 Creat Clearance w eGFR > 60 Random Glucose 83 D Calcium 9.0 Total Bilirubin 1.2 H D AST 22 D ALT 23 D Alkaline Phosphatase 111 Creatine Kinase 69 Troponin I < 0.02 B-Natriuretic Peptide Total Protein 7.9 Albumin 3.8 08/15/17 21:20 RBC 4.41 MCV 84.6 MCHC 34.0 RDW 16.7 H D MPV 8.9 D Neutrophils % No Result Required. Lymphocytes % No Result Required. - RADIOLOGY Radiology Studies Ordered: Category Date Time Status HEAD CT WITHOUT CONTRAST [CT] Stat CT Scan 08/15/17 23:10 Taken Medical Decision Making - Medical Decision Making 08/15/17 21:27 61 F with h/o PE on coumadin presents to ER with syncopal episode. Pt HD stable at this time with no complaints. Pt with prodrome of lightheadedness and nausea , more consistent with a vasovagal event rather than cardiac. Will need to r/o PE as etiology of syncope given prior history of PE. - Labs, trop - CTA chest - Monitor in ER 08/15/17 22:58 Ddimer negative, will defer CT angio at this time. 08/15/17 23:59 CBC,CMP WBC 6.5 K/mm3 (4.0-10.0) 08/15/17 21:20 RBC 4.41 M/mm3 (3.60-5.2) 08/15/17 21:20 Hgb 12.7 GM/dL (10.7-15.3) D 08/15/17 21:20 Hct 37.3 % (32.4-45.2) D 08/15/17 21:20 MCV 84.6 fl (80-96) 08/15/17 21:20 MCH 28.8 pg (25.7-33.7) 08/15/17 21:20 MCHC 34.0 g/dl (32.0-36.0) 08/15/17 21:20 RDW 16.7 % (11.6-15.6) H D 08/15/17 21:20 Plt Count 249 K/MM3 (134-434) D 08/15/17 21:20 MPV 8.9 fl (7.5-11.1) D 08/15/17 21:20 Total Counted 100 08/15/17 21:20 Neutrophils % No Result Required. 08/15/17 21:20 Neutrophils % (Manual) 71.0 % (42.8-82.8) 08/15/17 21:20 Lymphocytes % No Result Required. 08/15/17 21:20 Lymphocytes % (Manual) 23.0 % (8-40) 08/15/17 21:20 Monocytes % (Manual) 5 % (3.8-10.2) 08/15/17 21:20 Eosinophils % (Manual) 1.0 % (0-4.5) 08/15/17 21:20 Differential Comment Man diff performed 08/15/17 21:20 Platelet Estimate Adequate 08/15/17 21:20 Platelet Comment 08/15/17 21:20 Sodium 140 mmol/L (136-145) 08/15/17 21:20 Potassium 4.2 mmol/L (3.5-5.1) 08/15/17 21:20 Chloride 108 mmol/L (98-107) H 08/15/17 21:20 Carbon Dioxide 25 mmol/L (21-32) 08/15/17 21:20 Anion Gap 7 (8-16) L 08/15/17 21:20 BUN 14 mg/dL (7-18) 08/15/17 21:20 Creatinine 0.8 mg/dL (0.55-1.02) 08/15/17 21:20 Creat Clearance w eGFR > 60 (>60) 08/15/17 21:20 Random Glucose 83 mg/dL (74-106) D 08/15/17 21:20 Calcium 9.0 mg/dL (8.5-10.1) 08/15/17 21:20 Total Bilirubin 1.2 mg/dL (0.2-1.0) H D 08/15/17 21:20 AST 22 U/L (15-37) D 08/15/17 21:20 ALT 23 U/L (12-78) D 08/15/17 21:20 Alkaline Phosphatase 111 U/L (45-117) 08/15/17 21:20 Creatine Kinase 69 IU/L (26-192) 08/15/17 21:20 Troponin I < 0.02 ng/ml (0.00-0.05) 08/15/17 21:20 B-Natriuretic Peptide 39.23 pg/ml (5-125) 08/15/17 21:20 Total Protein 7.9 g/dl (6.4-8.2) 08/15/17 21:20 Albumin 3.8 g/dl (3.4-5.0) 08/15/17 21:20 Ddimer negative and pt with therapeutic INR, making PE unlikely. Pt with normal cardiac work up, BNP and trop negative. No evidence of heart failure. Labs otherwise unremarkable, normal H/H. Pt with no SOB. By [place] syncope rules, no indication for admission at this romel. Pt reassessed - reports that she continues to feel well, without any lightheadedness/CP/SOB/palpitations. Vitals normal. Pt well appearing with benign exam. Clinically stable for DC at this time. 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 If you experience any chest pain, shortness of breath, lightheadedness, fainting episodes, or any other concerning symptoms, return to the ER immediately. - Post Discharge Activity - Attestations Physician Attestion: 08/16/17 00:01 I, Dr. Henry Mccromack MD, attest that this document has been prepared under my direction and personally reviewed by me in its entirety. I further attest, that it accurately reflects all work, treatment, procedures and medical decision -making performed by me.
[2017-08-15 21:50] LABS: RDW 16.7 % (11.6-15.6)
[2017-08-15 21:54] LABS: MCH 28.8 pg (25.7-33.7); MEAN CELL VOLUME 84.6 fl (80-96); MEAN PLT VOLUME 8.9 fl (7.5-11.1); PLATELET COUNT 249 K/MM3 (134-434)
[2017-08-15 22:06] LABS: INR 2.32 (0.82-1.09); PROTHROMBIN TIME (PATIENT) 26.2 SEC (9.98-11.88)
[2017-08-15 22:27] LABS: CPK 69 IU/L (26-192); TROPONIN I < 0.02 ng/ml (0.00-0.05)
[2017-08-15 22:37] LABS: ALBUMIN 3.8 g/dl (3.4-5.0); ANION GAP 7 (8-16); BILIRUBIN,TOTAL 1.2 mg/dL (0.2-1.0); CO2 25 mmol/L (21-32); CREATININE 0.8 mg/dL (0.55-1.02); GLUCOSE,RANDOM 83 mg/dL (74-106); SGOT/AST 22 U/L (15-37); SGPT/ALT 23 U/L (12-78); TOT PROT 7.9 g/dl (6.4-8.2)
[2017-08-15 22:38] LABS: ALK PHOS 111 U/L (45-117)
[2017-08-15 22:54] LABS: TOTAL CELLS COUNTED 100; WHITE BLOOD COUNT 6.5 K/mm3 (4.0-10.0)
[2017-08-15 22:55] LABS: PLATELET ESTIMATE ADEQUATE
[2017-08-16 01:01] LABS: URINE APPEARANCE SLCLOUDY; URINE BILIRUBIN NEGATIVE (NEGATIVE); URINE BLOOD 1+ (NEGATIVE); URINE COLOR DKYELLOW; URINE GLUCOSE (UA) NEGATIVE (NEGATIVE); URINE KETONE TRACE (NEGATIVE); URINE LEUK ESTERASE NEGATIVE (NEGATIVE); URINE NITRITE NEGATIVE (NEGATIVE); URINE PROTEIN NEGATIVE (NEGATIVE); URINE UROBILINOGEN 4.0 E.U/dl mg/dL (0.2-1.0)
[2017-08-16 01:23] LABS: URINE BACTERIA RARE /hpf (NONE SEEN); URINE HYALINE CAST 12 /lpf; URINE MUCUS RARE; URINE RBC 1 /hpf (0-3); URINE WBC 1 /hpf (3-5)
[2017-08-16 11:58] LABS: URINE LEUK ESTERASE Negative (NEGATIVE)
--- NOTE | 2017-08-16 21:12 | EKG ---
Test Reason : Blood Pressure : / mmHG Vent. Rate : 057 BPM Atrial Rate : 057 BPM P-R Int : 200 ms QRS Dur : 086 ms QT Int : 432 ms P-R-T Axes : 060 026 050 degrees QTc Int : 420 ms SINUS BRADYCARDIA WITH SINUS ARRHYTHMIA WITH 1ST DEGREE A-V BLOCK WHEN COMPARED WITH ECG OF 23-FEB-2017 23:41, HI INTERVAL HAS INCREASED T WAVE INVERSION NO LONGER EVIDENT IN ANTERIOR LEADS Confirmed by NILSON YEPEZ, DAYANNA ([id number]) on 08/16/2017 9:11:59 PM Referred By: Confirmed By:DAYANNA DEVINE MD
== END 2017-08-16 00:06 | disposition home or self-care (01) ==
LOC: JER 20:07
DX: I10 Essential (primary) hypertension (principal); Z86.711 Personal history of pulmonary embolism; Z79.01 Long term (current) use of anticoagulants; J45.909 Unspecified asthma, uncomplicated
CPT/HCPCS: 36415; 70450-TC; 80053; 81003; 81015; 82550; 83880; 84484; 85025; 85379; 85610; 85730; 93005; 93010; 99281-25